=== PATIENT | male | born 1990 | race Caucasian/White ===

== ENCOUNTER 2023-09-19 01:58 | Emergency (ER) | payer OTHER ==
[~2023-09-19] VITALS: Ht 177.8 cm; Wt 90.7 kg
[2023-09-19 02:04] VITALS: O2SAT 99
[2023-09-19 03:41] LABS: EOSINOPHILS % 0.8 % (0.0-5.0); HEMATOCRIT. 44.2 % (42.0-52.0); HEMOGLOBIN. 14.8 g/dL (14.0-18.0); LYMPHOCYTES % 23.5 % (20.0-50.0); MEAN CORPUSCULAR HEMOGLOBIN 29.2 pg (28.0-32.0); MEAN CORPUSCULAR HGB CONC 33.5 g/dL (31.0-37.0); MEAN CORPUSCULAR VOLUME 87.2 fL (80.0-94.0); MEAN PLATELET VOLUME 7.5 fl (7.4-10.4); MONOCYTES % 6.7 % (2.0-8.0); PLATELET 327 x1000/uL (130-400); RED BLOOD CELL COUNT 5.07 mill/uL (4.7-6.1); RED CELL DISTRIBUTION WIDTH 13.1 % (11.6-14.6); WHITE BLOOD COUNT 10.6 x1000/uL (4.5-11.0)
[2023-09-19 03:43] LABS: CHLORIDE 105 mEq/L (98-107); POTASSIUM 3.6 mEq/L (3.5-5.1); SODIUM 138 mEq/L (136-145)
[2023-09-19 03:44] LABS: CARBON DIOXIDE 25 mEq/L (21-32)
[2023-09-19 03:45] LABS: CALCIUM 9.4 mg/dL (8.7-10.4)
[2023-09-19 03:49] LABS: CREATININE 0.9 mg/dL (0.6-1.3); GLUCOSE 115 mg/dL (70-105)
[2023-09-19 03:50] LABS: UREA NITROGEN BLOOD 10 mg/dL (9-23)
[2023-09-19 03:52] LABS: ALANINE AMINOTRANSFERASE 75 IU/L (10-49); ALBUMIN 4.6 g/dL (3.2-4.8); ASPARTATE AMINOTRANSFERASE 30 IU/L (<34); BILIRUBIN TOTAL 0.5 mg/dL (0.1-1.0); PROTEIN TOTAL 7.2 g/dL (6.0-8.3)
[2023-09-19 04:43] LABS: BG BASE EXCESS -0.8 mmol/L (-2.0-2.0); BG CARBOXYHEMOGLOBIN 0.2 % (0.5-1.5); BG DEOXYHEMOGLOBIN 2.2 % (0.0-5.0); BG HCO3 ACT 22.7 mmol/L (22.0-26.0); BG METHEMOGLOBIN 0.4 % (0.0-1.5); BG OXYGEN SATURATION 97.8 % (92.0-98.5); BG OXYHEMOGLOBIN 97.2 % (94.0-97.0); BG PCO2 34.7 mmHg (35.0-45.0); BG PH 7.434 (7.350-7.450); BG PO2 100.1 mmHg (75.0-100.0); BG SAMPLE SITE RIGHT RADIAL; BG TOTAL HEMOGLOBIN 15.6 g/dL (12.0-18.0)
[2023-09-19] MEDS ORDERED: ONDA4TAB50 MT (05:21)
[2023-09-19 07:33] VITALS: BP 121/83; PULSE 71; RESP 14; TEMP 97.3
== END 2023-09-19 07:37 | disposition home or self-care (01) ==
LOC: ER 01:58
DX: R42 Dizziness and giddiness (principal); R11.0 Nausea
CPT/HCPCS: 36415; 36600; 80053; 82375; 82805; 85025; 99283